=== PATIENT | female | born 1955 | race Caucasian/White ===

== ENCOUNTER 2016-09-17 16:04 | Emergency (ER) | payer OTHER ==
[2016-09-17] MEDS ORDERED: LIDOCAINE 2% UROJECT 10 ML ONE ×2 (16:24→16:38)
[2016-09-17] MEDS ORDERED: HYDROCODONE/ACETAMINOPHEN 5/325MG TABLET ONE (16:49)
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
== END 2016-09-17 19:18 | disposition home or self-care (01) ==
LOC: ED 16:04
DX: S50.811A Abrasion of right forearm, initial encounter (principal); S70.311A Abrasion, right thigh, initial encounter; S80.212A Abrasion, left knee, initial encounter; S80.211A Abrasion, right knee, initial encounter; S01.81XA Laceration without foreign body of other part of head, initial encounter; S82.892A Other fracture of left lower leg, initial encounter for closed fracture; S62.101A Fracture of unspecified carpal bone, right wrist, initial encounter for closed fracture; V19.9XXA Pedal cyclist (driver) (passenger) injured in unspecified traffic accident, initial encounter; Y93.55 Activity, bike riding; Y92.410 Unspecified street and highway as the place of occurrence of the external cause; K21.9 Gastro-esophageal reflux disease without esophagitis; Z79.899 Other long term (current) drug therapy